=== PATIENT | female | born 1980 | race Caucasian/White ===

== ENCOUNTER 2018-02-13 08:54 | Emergency (ER) | payer OTHER ==
--- NOTE | 2018-02-13 09:09 | EDPHY ---
H & P Stated Complaint: 14 wks with heavy vaginal bleeding/hx factor V leiden defic Time Seen by Provider: 02/13/18 09:08 HPI/ROS: HPI: This is a 37-year-old female who presents with Chief Complaint: 14 wks with heavy vaginal bleeding/hx factor V Leiden deficiency Location: Quality: Duration: Signs and Symptoms: no fever, no nausea, no vomiting, no hematemesis, no blood in stool, no abdominal bloating, no diarrhea, no back pain, no urinary symptoms , no vaginal discharge, no indigestion, no chest pain, no shortness of breath Timing: Severity: Context: Patient has a history of factor 5 Leiden deficiency, currently 14 weeks , , with a living 6-year-old child, reports that she started with dark spotting on Tuesday that was very scant in nature. She followed up with her OBGYN Dr. Amy Aldrich from [facility] who performed an ultrasound that was unremarkable per patient. This morning she woke up and urinated in the toilet and noted a large bright red clot that passed. She has not needed to change her feminine pad once. She reports that there has been no further bleeding since that time. This was approximately 2-3 hours ago. She reports that her uterus feels heavy but denies any abdominal or pelvic pain or cramping. Ultrasound on Tuesday measured EGA to be 14 weeks tomorrow. After her 1st she did have to take heparin for 6 weeks . There were no complications with her 1st . No prior history of miscarriages. No recent sexual intercourse. Patient called her OBGYN office this morning they advised her to go to the emergency room for further evaluation. NO urinary symptoms. Patient reports her blood type is A-positive. Patient taking vitamins. Modifying Factors: None Comment: ROS: see HPI Constitutional: No fever, no chills, no weight loss Eyes: No blurred vision Respiratory: No shortness of breath, no cough Cardiovascular: No chest pain, no palpitations Gastrointestinal: No nausea, no vomiting, no diarrhea, no hematemesis, no blood in stool Genitourinary: No dysuria, no blood in urine Extremities: No myalgias, no edema Neurologic: No weakness, no numbness Skin: No rashes, no petechiae Hematologic: No bruising, + bleeding MEDICAL/SURGICAL/SOCIAL HISTORY: Medical history: factor 5 Leiden deficiency/preeclampsia with prior Surgical history: Denies Social history:. nonsmoker. Family history noncontributory. CONSTITUTIONAL: Polite and cooperative nontoxic appearing middle-aged white female, awake and alert, no obvious distress HEENT: Atraumatic and normocephalic, PERRL, EOMI. Nares patent; no rhinorrhea; no nasal mucosal edema. Tympanic membranes clear. Oropharynx clear, no exudate and moist pink mucosa. Airway patent. No lymphadenopathy. No meningismus. Cardiovascular: Normal S1/S2, regular rate, regular rhythm, without murmur rub or gallop. PULMONARY/CHEST: Symmetrical and nontender. Clear to auscultation bilaterally. Good air movement. No accessory muscle usage. ABDOMEN: Soft, gravid, nondistended, nontender, no rebound, no guarding, no peritoneal signs, no masses or organomegaly. No CVAT. PELVIC: patient politely declined EXTREMITIES: 2/2 pulses, strength 5/5, no deformities, no clubbing, no cyanosis or edema. NEUROLOGICAL: no focal neuro deficits. GCS 15. SKIN: Warm and dry, no erythema. no rash. Good capillary refill. Source: Patient Exam Limitations: No limitations - Personal History LMP (Females 10-55): Current Tetanus Diphtheria and Acellular Pertussis (TDAP): Yes - Medical/Surgical History Hx Asthma: No Hx Chronic Respiratory Disease: No Hx Diabetes: No Hx Cardiac Disease: No Hx Renal Disease: No Hx Cirrhosis: No Hx Alcoholism: No Hx HIV/AIDS: No Hx Splenectomy or Spleen Trauma: No Other PMH: factor 5 leiden defic/preeclampsia with prior - Social History Smoking Status: Never smoked Constitutional: Initial Vital Signs Temperature (C) 36.9 C 02/13/18 09:01 Heart Rate 80 02/13/18 09:01 Respiratory Rate 16 02/13/18 09:01 Blood Pressure 131/81 H 02/13/18 09:01 O2 Sat (%) 97 02/13/18 09:01 O2 Delivery Mode Room Air Allergies/Adverse Reactions: No Known Allergies Allergy (Unverified 02/13/18 09:00) Home Medications: Medication Instructions Recorded NK [No Known Home Meds] 02/13/18 Medical Decision Making - Diagnostics Imaging Results: Imaging Impressions Obstetrics Ultrasound 02/13/18 09:17 Impression: There is a single viable intrauterine gestation with no sonographic explanation for recent bleeding. The patient should return at 20 weeks gestation for more complete anatomic screening and repeat biometry, unless otherwise clinically indicated. It may also be worthwhile to consider follow-up at the [facility] with the [facility], given the patient's advanced maternal age. Findings were discussed with Rowena Mayorga PA-C at 10:48, on 02/13/2018. ED Course/Re-evaluation: Vital signs reviewed upon arrival and blood pressure noted to be 131/81 labs including coags, urinalysis, Pelvic US ordered RhoGAM not indicated. Ordered 1 liter NS and patient politely declined. Tolerating PO without any difficulty. Urinalysis shows no protein, no ketones. 1+ blood. No signs of infection. 0935: Labs reviewed. H&H 13.5/41.7, platelet count 244 K, creatinine 0.5, PT/ PTT within normal limits, hcg 40,245 No signs of preeclampsia/eclampsia 1015: Called by radiologist who advised that there is no signs of abruption, no signs of subchorionic hemorrhage, there is a positive intrauterine at 14 weeks, no free fluid. 1050: ED Decision to consult [facility] Dr. Raygoza. Spoke with Dr. Jaci Ventura regarding the case and results. She recommends follow-up in 3-5 days with pelvic rest. 1100: Reassessed patient who reports there has been no bleeding since the 1 episode this morning. Discussed pelvic rest. This patient was seen under the supervision of my secondary supervising physician. I evaluated care for this patient independently. Discussed this patient with Dr. Cuenca who did not see the patient. Differential Diagnosis: Vaginal bleeding including but not limited to ectopic , menses, miscarriage, and dysfunctional uterine bleeding. - Data Points Laboratory Results: Laboratory Results 02/13/18 09:20 02/13/18 09:20 02/13/18 02/13/18 02/13/18 09:20 09:20 09:20 WBC 9.69 10^3/uL H 10^3/uL (3.80-9.50) RBC 5.03 10^6/uL 10^6/uL (4.18-5.33) Hgb 13.5 g/dL g/dL (12.6-16.3) Hct 41.7 % % (38.0-47.0) MCV 82.9 fL fL (81.5-99.8) MCH 26.8 pg L pg (27.9-34.1) MCHC 32.4 g/dL g/dL (32.4-36.7) RDW 14.6 % % (11.5-15.2) Plt Count 244 10^3/uL 10^3/uL (150-400) MPV 10.1 fL fL (8.7-11.7) Neut % (Auto) 69.4 % % (39.3-74.2) Lymph % (Auto) 24.0 % % (15.0-45.0) Fountain % (Auto) 5.3 % % (4.5-13.0) Eos % (Auto) 0.6 % % (0.6-7.6) Baso % (Auto) 0.4 % % (0.3-1.7) Nucleat RBC Rel Count 0.0 % % (0.0-0.2) Absolute Neuts (auto) 6.72 10^3/uL H 10^3/uL (1.70-6.50) Absolute Lymphs (auto) 2.33 10^3/uL 10^3/uL (1.00-3.00) Absolute Monos (auto) 0.51 10^3/uL 10^3/uL (0.30-0.80) Absolute Eos (auto) 0.06 10^3/uL 10^3/uL (0.03-0.40) Absolute Basos (auto) 0.04 10^3/uL 10^3/uL (0.02-0.10) Absolute Nucleated RBC 0.00 10^3/uL 10^3/uL (0-0.01) Immature Gran % 0.3 % % (0.0-1.1) Immature Gran # 0.03 10^3/uL 10^3/uL (0.00-0.10) PT 12.5 SEC SEC (12.0-15.0) INR 0.91 (0.83-1.16) APTT 25.2 SEC SEC (23.0-38.0) Sodium 138 mEq/L mEq/L (135-145) Potassium 4.0 mEq/L mEq/L (3.3-5.0) Chloride 104 mEq/L mEq/L (97-110) Carbon Dioxide 22 mEq/l mEq/l (22-31) Anion Gap 12 mEq/L mEq/L (8-16) BUN 10 mg/dL mg/dL (7-23) Creatinine 0.5 mg/dL L mg/dL (0.6-1.0) Estimated GFR > 60 Glucose 91 mg/dL mg/dL (70-100) Calcium 9.5 mg/dL mg/dL (8.5-10.4) Beta HCG, Quant 89670.00 mIU/mL H mIU/mL (0.00-4.83) Urine Color Urine Appearance Urine pH Ur Specific [place] Urine Protein Urine Ketones Urine Blood Urine Nitrate Urine Bilirubin Urine Urobilinogen Ur Leukocyte Esterase Urine RBC Urine WBC Ur Epithelial Cells Urine Mucus Urine Glucose 02/13/18 09:10 WBC RBC Hgb Hct MCV MCH MCHC RDW Plt Count MPV Neut % (Auto) Lymph % (Auto) Fountain % (Auto) Eos % (Auto) Baso % (Auto) Nucleat RBC Rel Count Absolute Neuts (auto) Absolute Lymphs (auto) Absolute Monos (auto) Absolute Eos (auto) Absolute Basos (auto) Absolute Nucleated RBC Immature Gran % Immature Gran # PT INR APTT Sodium Potassium Chloride Carbon Dioxide Anion Gap BUN Creatinine Estimated GFR Glucose Calcium Beta HCG, Quant Urine Color YELLOW Urine Appearance CLEAR Urine pH 5.0 (5.0-7.5) Ur Specific [place] 1.016 (1.002-1.030) Urine Protein NEGATIVE (NEGATIVE) Urine Ketones NEGATIVE (NEGATIVE) Urine Blood 1+ H (NEGATIVE) Urine Nitrate NEGATIVE (NEGATIVE) Urine Bilirubin NEGATIVE (NEGATIVE) Urine Urobilinogen NEGATIVE EU EU (0.2-1.0) Ur Leukocyte Esterase NEGATIVE (NEGATIVE) Urine RBC 1-3 /hpf /hpf (0-3) Urine WBC 1-3 /hpf /hpf (0-3) Ur Epithelial Cells NONE SEEN /lpf /lpf (NONE-1+) Urine Mucus TRACE /lpf /lpf (NONE-1+) Urine Glucose NEGATIVE (NEGATIVE) Medications Given: Discontinued Medications Sodium Chloride (Ns) 1,000 mls @ 0 mls/hr IV ONCE ONE; Wide Open PRN Reason: Protocol Stop: 02/13/18 09:18 Last Admin: 02/13/18 09:25 Dose: Not Given Departure - Departure Disposition: Home, Routine, Self-Care Clinical Impression: Second trimester bleeding, Factor V Leiden, Threatened miscarriage Condition: Good Instructions: Threatened Miscarriage (ED), Pelvic Rest (ED) Additional Instructions: Consume a minimum of 8-10 glasses of water or electrolyte fluid replacement drinks that include Gatorade, Powerade, Pedialyte. Please observe pelvic rest until follow up with OBGYN. Continue to take vitamins daily as directed. Please call Dr. Aldrich's office for follow up by Tuesday. You will likely need repeat blood test and plus or minus repeat ultrasound depending on OBGYN recommendation. Referrals: Amy Aldrich MD [Non Staff Provider (MD)] - As per Instructions Dixie Marquez MD [Primary Care Provider] - As per Instructions
[2018-02-13] MEDS ORDERED: NS 1,000 ML IV ONE (09:17)
[2018-02-13 09:33] LABS: PLATELET COUNT 244 10^3/uL (150-400)
[2018-02-13 09:48] LABS: INR 0.91 (0.83-1.16); PROTIME(PATIENT) 12.5 SEC (12.0-15.0)
[2018-02-13 11:34] VITALS: BP 122/84
== END 2018-02-13 11:32 | disposition home or self-care (01) ==
DX: O20.0 Threatened abortion (principal); O99.112 Other diseases of the blood and blood-forming organs and certain disorders involving the immune mechanism complicating pregnancy, second trimester; D68.51 Activated protein C resistance; Z3A.14 14 weeks gestation of pregnancy

== ENCOUNTER 2018-07-25 01:20 | Inpatient (IN) | payer OTHER ==
[2018-07-25] MEDS ORDERED: LIDOCAINE 1% 300 MG/30 ML SDV SC PRN (02:04)
[2018-07-25] MEDS ORDERED: EPSOM SALT 454 GM TP PRN (02:04)
[2018-07-25] MEDS ORDERED: LR 1,000 ML IV PRN (02:04)
[2018-07-25] MEDS ORDERED: IBUPROFEN 600 MG TAB PO PRN (02:04)
[2018-07-25] MEDS ORDERED: MISOPROSTOL 200 MCG TAB PR PRN (02:04)
[2018-07-25] MEDS ORDERED: OLIVE OIL 118 ML BTL MISC PRN (02:04)
[2018-07-25] MEDS ORDERED: OXYTOCIN/RINGERS LACTATE 1,000 ML IV PRN (02:04)
[2018-07-25] MEDS ORDERED: TERBUTALINE SULFATE 1 MG/ML VIAL IV PRN (02:04)
[2018-07-25] MEDS ORDERED: oxyCODONE IR 5 MG TAB PO PRN (02:27)
[2018-07-25] MEDS ORDERED: SIMETHICONE 80 MG TAB CHEW PO PRN (02:27)
[2018-07-25] MEDS ORDERED: DOCUSATE SODIUM 100 MG CAP PO PRN (02:27)
[2018-07-25] MEDS ORDERED: HYDROCORTISONE 0.5% CREAM TP PRN (02:27)
[2018-07-25 02:32] LABS: PLATELET COUNT 191 10^3/uL (150-400)
--- NOTE | 2018-07-25 02:32 | OBDEL ---
Info Type: Vaginal Presentation at Delivery: Vertex L&D Analgesia/Anesthesia Type: None, Other (Specify) (1% lidocaine for repair) GBS+: Yes (precipitous delivery no antibiotics given) Indications for Delivery: Spontaneous Labor Vaginal Delivery - Delivery Provider Delivery Physician/CNM: Alma Simmons - Labor and Delivery Onset of Contractions Date: 07/25/18 Onset of Contractions Time: 00:30 Onset of Contractions Type: Spontaneous Rupture of Membranes Date: 07/25/18 Rupture of Membranes Time: 01:35 Rupture of Membranes Type: Spontaneous Amniotic Fluid Color: Clear Dilation Complete Date: 07/25/18 Dilation Complete Time: 01:43 Placenta Delivery Date: 07/25/18 Placenta Delivery Time: 02:05 Total Hours of Labor: 1 Laceration: 1st Degree Repair: 2-0, Vicryl Vaginal Sponge Count Correct: Yes Vaginal Needle Count Correct: Yes Vaginal Sweep Performed: Yes EBL: 250 Delivery Events: Other (Specify) (preciptous delivery < 1 hour from onset of contractions to delivery, unable to receive antibiotics for GBS +) Evans Data FANTASMA: 08/15/18 Gestational Age: 37 week(s) and 0 day(s) [place]ham Delivery Date: 07/25/18 Delivery Time: 01:46 Sex of : Male Score (1 Min): 8 Score (5 Min): 9 ICD10 Worksheet Patient Problems: Problems Problem Status Onset Gestational HTN Acute Precipitous delivery Acute (spontaneous vaginal delivery) Acute - ICD10 Problem Qualifiers (1) (spontaneous vaginal delivery) (2) Precipitous delivery (3) Gestational HTN
--- NOTE | 2018-07-25 04:27 | GHP ---
DATE OF ADMISSION: 07/25/2018 ADMITTING DIAGNOSIS: Intrauterine at 37-0/7 weeks gestation, in spontaneous active labor, with a precipitous spontaneous vaginal delivery. HISTORY OF PRESENT ILLNESS: The patient is a 38-year-old, 2, para 0-1-0-1, who is 37-0/7 wee ks today confirmed by an 8-week ultrasound. She has an EDC of 08/15/2018. She has had care at [facility] with a certified nurse fretted instrument repairer group. Her course has been complicated by a re cent diagnosis of pre-eclampsia with mild features at 37 weeks. She had elevated blood pressures in the 140s to 160s over 80s to 90s. She has been monitoring her blood pressure at home. She had negat kennedy blood work for HELLP syndrome on July 19, and an elevated P:C ratio of 0.449. The plan was h ave an induction of labor on the night of the at [facility]. She had a visit with her kevin rice fretted instrument repairer provider earlier on the . Her cervix was 2, 50%, -2, and her membranes were swept. She also had labor-inducing acupuncture to help with her induction of labor. The patient states she had an onset of labor at approximately 12:30 a.m. with a cramping and contractions that steadily incr eased over a very short period of time. They made the decision that they would not make it to [facility] for delivery and came instead to [facility]. When she presented, she was found to be 8 cm, 100% , and 0, active labor with a bulging bag of water and within a very few minutes, she h ad a spontaneous vaginal delivery, in hands and knees position, of a viable male . She did wel l post vaginal delivery. We had delayed cord clamping for over 5 minutes. The placenta was delivere d spontaneously. She had a second-degree laceration that was repaired and overall, has done well. T he patient has had elevated blood pressures on this admission. PH labs are normal. Pre-eclampsia la bs are normal. Her review of records after delivery demonstrates: 1. Significant risk factors of advanced maternal age. She has had normal laboratory evalua tion and level 2 ultrasounds. 2. History of pre-eclampsia with a previous . She had induction of labor at 36 and 6, was never given magnesium sulfate. 3. Hypothyroidism. She is treated for this and she is heterozygous for factor 5 Leiden. She has be en on baby aspirin since the and it is recommended that she start on Lovenox for prophylaxis. She has never had herself a DVT. Had a peripheral blood clot from IV placement in 201 2. PAST OBSTETRICAL HISTORY: In November 2011 at 36 and 6, she had a spontaneous vaginal delivery of a via ble female infant, induction of labor secondary to pre-eclampsia, and this is her second . PAST MEDICAL PROBLEMS: She has eczema, Factor 5 Leiden heterozygous mutation, history of infertility , had used Clomid with her first baby, history of migraines, polycystic ovarian syndrome, history of pre-eclampsia, hypothyroidism. PAST SURGICAL HISTORY: Left ankle surgery and wisdom tooth extraction. ALLERGIES: She has no known drug allergies. CURRENT MEDICATIONS: Only include vitamins and a baby aspirin. FAMILY HISTORY: Unknown. Patient is adopted. SOCIAL HISTORY: She is . She lives with her , Margarito, and her daughter. She works as a [employer] manager. She is a former smoker, quit at age 15. No alcohol or drug use. REVIEW OF SYSTEMS: Currently, she has a negative review of systems. When she presented in labor, patricia syed had active labor contractions. Negative other 10-point review of systems. PHYSICAL EXAMINATION: Currently, blood pressures are in the 160s over 70. In general, she is a well -developed, well-nourished female, in no acute distress. Lungs are clear to auscultation bilaterally . HEART: Regular rate and rhythm. No murmur. Abdomen is soft. Uterine fundus was firm. Umbilicu s -1. She had a second-degree laceration that was repaired. EBL for her delivery was approximately 200 cc. LABS: White count is 14.2, hemoglobin 13.4, hematocrit 42.4, platelets 191. Chemistries: BUN is 13 , creatinine 0.5. AST 22, ALT 20, LDH 540, and uric acid was 4.4. ASSESSMENT/PLAN: 38-year-old, 2, para 1-1-0-2, who is status post spontaneous precipitous va ginal delivery of a viable male infant. Both Mom and baby are doing well currently. Mom continues t o have elevated blood pressures of 160s over 70s. No current evidence of pre-eclampsia and she is fe eling well. We will monitor her blood pressures closely and I will not administer magnesium sulfate as of now. We will monitor her closely and see if she needs treatment with antihypertensives. I carola galvez start Lovenox at 6 hours post vaginal delivery. /[id number]/MODL
[2018-07-25] MEDS: ACETAMINOPHEN 325 MG TAB PO SCH ×4 (04:30→20:30)
[2018-07-25] MEDS: ENOXAPARIN 40 MG/0.4 ML SYR SC SCH (08:28)
[2018-07-25] MEDS: IBUPROFEN 600 MG TAB PO SCH ×4 (09:51→23:36)
--- NOTE | 2018-07-25 13:43 | OBPP ---
Progress Note Assessment/Plan: Assessment: 1) s/p PPD # 1 - pt is stable 2) Hypothyroidism - stable on meds Plan: Continue routine pp care BPs stable and pt is asymptomatic Restarted [place] thyroid per pt Encourage ambulation Plan for d/c home in am 12/07/25/18 13:40 Subjective/ Course: 07/25/18 13:42 Pt seen and examined. Doing well with no complaints. Mild cramping. Mod lochia. Pt is OOB, nikolas regular diet, voiding and passing flatus. Pumping is going well so far. Objective: 07/25/18 02:15 07/25/18 02:15 Patient ABO/Rh AB POSITIVE 07/25/18 02:15 Uric Acid 4.4 mg/dL (2.5-6.8) 07/25/18 02:15 Total Bilirubin 0.2 mg/dL (0.1-1.4) 07/25/18 02:15 Conjugated Bilirubin 0.1 mg/dL (0.0-0.5) 07/25/18 02:15 Unconjugated Bilirubin 0.1 mg/dL (0.0-1.1) 07/25/18 02:15 AST 22 IU/L (14-46) 07/25/18 02:15 ALT 20 IU/L (9-52) 07/25/18 02:15 Lactate Dehydrogenase 540 IU/L (313-618) 07/25/18 02:15 Temp Pulse Resp BP Pulse Ox 37.3 C 78 16 127/75 H 97 07/25/18 13:36 07/25/18 13:36 07/25/18 13:36 07/25/18 13:36 07/25/18 13:36 Uterine Position/Fundal Height: Umbilicus -2 Uterine Tone: Firm Physical Exam - Physical Exam General Appearance: WD/WN, alert, no apparent distress Respiratory: lungs clear, normal breath sounds Cardiac/Chest: regular rate, rhythm Abdomen: normal bowel sounds, non-tender, soft, flatus (+) Extremities: non-tender, normal inspection Skin: normal color, warm/dry Neuro/Psych: alert, normal mood/affect, oriented x 3
[2018-07-25] MEDS ORDERED: THYROID 60 MG TAB PO SCH (13:45)
[2018-07-26] MEDS: ACETAMINOPHEN 325 MG TAB PO SCH ×4 (02:30→20:30)
[2018-07-26] MEDS: ENOXAPARIN 40 MG/0.4 ML SYR SC SCH (08:56)
[2018-07-26] MEDS: THYROID 60 MG TAB PO SCH (09:46)
--- NOTE | 2018-07-26 10:00 | OBPP ---
Progress Note Assessment/Plan: Assessment: 38 yo ppd# 1 s/p mild preeclampsia - stable blood pressures post breast feeding factor V leiden mutation heterozygous - lovenox post AB+/Rubella immune/ b=gbs positive - not treated due to precipitous labor Plan: 07/26/18 09:57 Subjective/ Course: 07/25/18 13:42 Pt seen and examined. Doing well with no complaints. Mild cramping. Mod lochia. Pt is OOB, nikolas regular diet, voiding and passing flatus. Pumping is going well so far. 07/26/18 10:00 patient is doing well. pain is well controlled. normal lochia. working on breast feeding. started lovenox. denies headache and changes in vision. blood pressures are stable. mood is stable. no concerns. Objective: 07/25/18 02:15 07/25/18 02:15 Patient ABO/Rh AB POSITIVE 07/25/18 02:15 Uric Acid 4.4 mg/dL (2.5-6.8) 07/25/18 02:15 Total Bilirubin 0.2 mg/dL (0.1-1.4) 07/25/18 02:15 Conjugated Bilirubin 0.1 mg/dL (0.0-0.5) 07/25/18 02:15 Unconjugated Bilirubin 0.1 mg/dL (0.0-1.1) 07/25/18 02:15 AST 22 IU/L (14-46) 07/25/18 02:15 ALT 20 IU/L (9-52) 07/25/18 02:15 Lactate Dehydrogenase 540 IU/L (313-618) 07/25/18 02:15 Temp Pulse Resp BP Pulse Ox 37.4 C 82 16 130/83 H 97 07/26/18 09:04 07/26/18 09:04 07/25/18 20:00 07/26/18 09:04 07/26/18 09:04 Physical Exam - Physical Exam Neck: non-tender, full range of motion Respiratory: chest non-tender, lungs clear, normal breath sounds Cardiac/Chest: normal peripheral pulses, regular rate, rhythm Abdomen: normal bowel sounds, non-tender, other (fundus firm and non tender) Extremities: normal range of motion, non-tender, normal inspection, normal capillary refill Skin: normal color, warm/dry Neuro/Psych: no motor/sensory deficits, alert, normal mood/affect, oriented x 3
[2018-07-26] MEDS: IBUPROFEN 600 MG TAB PO SCH ×2 (15:57→16:05)
[2018-07-27] MEDS: IBUPROFEN 600 MG TAB PO SCH ×3 (01:01→08:56)
[2018-07-27] MEDS: ACETAMINOPHEN 325 MG TAB PO SCH ×2 (02:30→09:42)
[2018-07-27] MEDS: ENOXAPARIN 40 MG/0.4 ML SYR SC SCH (08:56)
[2018-07-27] MEDS: THYROID 60 MG TAB PO SCH (08:57)
--- NOTE | 2018-07-27 09:02 | OBPP ---
Progress Note Assessment/Plan: Assessment:38 [id number], PPD#2 s/p precipitous . Some elevated BPs but not in range to consider medication. Otherwise doing well, desires homegoing. Plan:DC home. Will FU with [facility] - see dc summary. Desires FU closer than [facility] - where she received care. Charlotte Lord MD, FACOG [facility] 07/27/18 11:14 Subjective/ Course: 07/25/18 13:42 Pt seen and examined. Doing well with no complaints. Mild cramping. Mod lochia. Pt is OOB, nikolas regular diet, voiding and passing flatus. Pumping is going well so far. 07/26/18 10:00 patient is doing well. pain is well controlled. normal lochia. working on breast feeding. started lovenox. denies headache and changes in vision. blood pressures are stable. mood is stable. no concerns. 07/27/18 11:25 Pt doing well. Ambulating, voiding, nikolas reg diet without difficulty. Normal lochia. Mood is stable, no hx of pp depression. Desires follow up with [facility] in [facility] midwifery group at [facility] where she was getting care. Objective: 07/25/18 02:15 07/25/18 02:15 Patient ABO/Rh AB POSITIVE 07/25/18 02:15 Uric Acid 4.4 mg/dL (2.5-6.8) 07/25/18 02:15 Total Bilirubin 0.2 mg/dL (0.1-1.4) 07/25/18 02:15 Conjugated Bilirubin 0.1 mg/dL (0.0-0.5) 07/25/18 02:15 Unconjugated Bilirubin 0.1 mg/dL (0.0-1.1) 07/25/18 02:15 AST 22 IU/L (14-46) 07/25/18 02:15 ALT 20 IU/L (9-52) 07/25/18 02:15 Lactate Dehydrogenase 540 IU/L (313-618) 07/25/18 02:15 Temp Pulse Resp BP Pulse Ox 36.6 C 82 18 138/81 H 94 07/27/18 01:00 07/27/18 01:00 07/27/18 01:00 07/27/18 01:00 07/27/18 01:00 143/83 was highest BP yesterday. gen - pleasant, NAD CV - RRR chest - CTAB abd - fundus firm at u, NT, + BS ext - no calf tenderness, trace edema Uterine Position/Fundal Height: At Umbilicus Uterine Tone: Firm
[2018-07-27 09:41] VITALS: BP 126/78
--- NOTE | 2018-07-27 11:39 | OBGCSDC ---
General Delivery Information - General Info : 2 Para: 2 Abortions: 0 Type: Vaginal L&D Analgesia/Anesthesia Type: Nitrous Admission Date: 07/25/18 Labs: Patient ABO/Rh AB POSITIVE 07/25/18 02:15 Hct 42.4 % (38.0-47.0) 07/25/18 02:15 - Hospital Course : 07/25/18 13:42 Pt seen and examined. Doing well with no complaints. Mild cramping. Mod lochia. Pt is OOB, nikolas regular diet, voiding and passing flatus. Pumping is going well so far. 07/26/18 10:00 patient is doing well. pain is well controlled. normal lochia. working on breast feeding. started lovenox. denies headache and changes in vision. blood pressures are stable. mood is stable. no concerns. 07/27/18 11:25 Pt doing well. Ambulating, voiding, nikolas reg diet without difficulty. Normal lochia. Mood is stable, no hx of pp depression. Desires follow up with [facility] in [facility] midwifery group at [facility] where she was getting care. Vaginal - Delivery Provider Delivery Physician/CNM: Alma Simmons - Diagnosis Labor: Spontaneous Rupture of Membranes Type: Spontaneous Amniotic Fluid Color: Clear Laceration: 1st Degree Repair: 2-0, Vicryl Delivery Events: Other (Specify) (preciptous delivery < 1 hour from onset of contractions to delivery, unable to receive antibiotics for GBS +) - Delivery EBL: 250 Data FANTASMA: 08/15/18 Gestational Age: 37 week(s) and 2 day(s) [place] Delivery Date: 07/25/18 Delivery Time: 01:46 Sex of Infant: Male Weight (gm): 3128 g Score (1 Min): 8 Score (5 Min): 9 Discharge Information - Discharge Information Prescriptions: Enoxaparin [Lovenox 40 MG (*)] 40 mg SC DAILY 40 Days #40 syr Condition: Good Instruction/Follow Up: See Instruction Sheet, One Week, Four Weeks, Six Weeks
== END 2018-07-27 12:25 | disposition home or self-care (01) | DRG 806 ==
LOC: FLD 01:20 → FOB 05:09
PROVIDERS: ADMIT Obstetrics & Gynecology; ATTEND Obstetrics & Gynecology
DX: O62.3 Precipitate labor (principal); O70.0 First degree perineal laceration during delivery; O99.824 Streptococcus B carrier state complicating childbirth; O13.4 Gestational [pregnancy-induced] hypertension without significant proteinuria, complicating childbirth; O99.284 Endocrine, nutritional and metabolic diseases complicating childbirth; E03.9 Hypothyroidism, unspecified; O99.12 Other diseases of the blood and blood-forming organs and certain disorders involving the immune mechanism complicating childbirth; D68.2 Hereditary deficiency of other clotting factors; Z3A.37 37 weeks gestation of pregnancy; Z37.0 Single live birth
CPT/HCPCS: J1650